=== PATIENT | female | born 1990 | race African-American/Black ===

== ENCOUNTER 2022-04-22 18:52 | Emergency (ER) | payer OTHER ==
[~2022-04-22] VITALS: Ht 157.5 cm; Wt 54.4 kg
[2022-04-22 19:08] VITALS: BP 134/79
[2022-04-22] MEDS ORDERED: CYCL10TA9 PO (20:57)
[2022-04-22] MEDS ORDERED: NAPR-1009 PO (20:57)
[2022-04-24] MEDS ORDERED: CYCL10TA9 PO (10:50)
[2022-04-24] MEDS ORDERED: NAPR-1009 PO (10:50)
== END 2022-04-22 21:14 | disposition home or self-care (01) ==
LOC: ER 19:00
DX: S29.012A Strain of muscle and tendon of back wall of thorax, initial encounter (principal); S80.12XA Contusion of left lower leg, initial encounter; V89.2XXA Person injured in unspecified motor-vehicle accident, traffic, initial encounter; Y93.89 Activity, other specified; Y92.411 Interstate highway as the place of occurrence of the external cause; Y99.8 Other external cause status